=== PATIENT | male | born 1995 | race African-American/Black ===

== ENCOUNTER 2022-07-30 20:39 | Emergency (ER) | payer MEDICAID ==
[~2022-07-30] VITALS: Ht 188 cm; Wt 82.0 kg
[2022-07-30 20:42] VITALS: BP 118/79
[2022-07-30] MEDS ORDERED: ACET-2708 MT (22:42)
[2022-07-30] MEDS ORDERED: AMOX-494 MT (22:42)
[2022-07-30] MEDS ORDERED: ACETAMINOPHEN 500MG TABLET PO ONE (22:45)
[2022-07-30] MEDS ORDERED: AMOXICILLIN 500 MG CAPSULE PO ONE (22:45)
== END 2022-07-30 23:23 | disposition home or self-care (01) ==
LOC: ER 20:39
DX: J02.9 Acute pharyngitis, unspecified (principal); Z88.6 Allergy status to analgesic agent
CPT/HCPCS: 87070; 87430; 99283